=== PATIENT | male | born 1945 | race Caucasian/White ===

== ENCOUNTER → 2016-07-25 | Outpatient (CLI) | payer MEDICARE | LOC: LAB 07:00 | PROVIDERS: Internal Medicine Nephrology | DX: N18.3 Chronic kidney disease, stage 3 (moderate) (principal); N25.81 Secondary hyperparathyroidism of renal origin | CPT/HCPCS: 36415; 80053; 82043; 82570; 83970; 84100 ==

== ENCOUNTER → 2020-06-06 | Outpatient (CLI) | payer MEDICARE ==
[~2020-06-06] MED LIST: ASPIR 8181 MG PO; CLOPIDOGREL75 MG PO; DILTIAZEM ER240 M1 PO; ISOSORBIDE MONO60 MG PO; LOPID TAB 600600 MG PO; NORVASC10 MG PO; PLAQUENIL 200200 MG PO; PRAVASTATIN SOD10 MG PO; ZANTAC150 MG PO; ZESTRIL10 MG PO
== END ==
LOC: LAB 07:17
PROVIDERS: Internal Medicine Nephrology
DX: N18.30 Chronic kidney disease, stage 3 unspecified (principal); N25.81 Secondary hyperparathyroidism of renal origin; E55.9 Vitamin D deficiency, unspecified
CPT/HCPCS: 36415; 80053; 82570; 83970; 84156

== ENCOUNTER → 2020-09-12 | Outpatient (CLI) | payer MEDICARE | LOC: LAB 06:29 | PROVIDERS: Internal Medicine Nephrology | DX: N18.30 Chronic kidney disease, stage 3 unspecified (principal); N25.81 Secondary hyperparathyroidism of renal origin | CPT/HCPCS: 36415; 80053; 82570; 83970; 84156 ==

== ENCOUNTER → 2020-11-24 | Outpatient (CLI) | payer MEDICARE | LOC: HEART 5 08:00 | DX: R07.9 Chest pain, unspecified (principal) | CPT/HCPCS: 93306 ==

== ENCOUNTER → 2020-12-12 | Outpatient (CLI) | payer MEDICARE | LOC: LAB 06:16 | PROVIDERS: Internal Medicine Nephrology | DX: N18.32 Chronic kidney disease, stage 3b (principal); N25.81 Secondary hyperparathyroidism of renal origin | CPT/HCPCS: 36415; 80053; 82570; 83970; 84100; 84156 ==

== ENCOUNTER → 2021-02-09 | Outpatient (CLI) | payer MEDICARE | LOC: LAB 06:03 | PROVIDERS: Internal Medicine Nephrology | DX: N18.32 Chronic kidney disease, stage 3b (principal); N25.81 Secondary hyperparathyroidism of renal origin | CPT/HCPCS: 36415; 80053; 82570; 83970; 84100; 84156 ==

== ENCOUNTER → 2021-05-15 | Outpatient (CLI) | payer MEDICARE ==
[2021-05-16 08:15] LABS: VITAMIN D, 25-HYDROXY 53.3 ng/mL (30.0-100.0)
[2021-05-16 10:16] LABS: A/G RATIO 1.9 (1.2-2.2); BILIRUBIN, TOTAL 0.2 mg/dL (0.0-1.2); CALCIUM, SERUM 9.2 mg/dL (8.6-10.2); CREATININE, SERUM 1.85 mg/dL (0.76-1.27); GLOBULIN, TOTAL 2.3 g/dL (1.5-4.5); PROTEIN, TOTAL, SERUM 6.7 g/dL (6.0-8.5)
== END ==
LOC: LAB 06:58
PROVIDERS: Internal Medicine Nephrology
DX: N18.32 Chronic kidney disease, stage 3b (principal); N25.81 Secondary hyperparathyroidism of renal origin; E55.9 Vitamin D deficiency, unspecified
CPT/HCPCS: 36415; 80053; 82570; 83970; 84100; 84156